=== PATIENT | male | born 1980 | race Caucasian/White ===

== ENCOUNTER 2017-07-30 21:12 | Emergency (ER) | payer SELFPAY ==
[~2017-07-30] VITALS: Ht 180.3 cm; Wt 70.3 kg
== END 2017-07-30 23:11 | disposition home or self-care (01) ==
LOC: ED 21:12
PROC: 0T9B70Z Drainage of Bladder with Drainage Device, Via Natural or Artificial Opening (ICD-10-PCS; principal; 2017-07-30)
DX: S90.561A Insect bite (nonvenomous), right ankle, initial encounter (principal); F17.200 Nicotine dependence, unspecified, uncomplicated; W57.XXXA Bitten or stung by nonvenomous insect and other nonvenomous arthropods, initial encounter
CPT/HCPCS: 51701; 85025; 99283; Q0163

== ENCOUNTER 2017-09-14 02:49 | Emergency (ER) | payer SELFPAY ==
[~2017-09-14] VITALS: Ht 180.3 cm; Wt 72.6 kg
== END 2017-09-14 03:39 | disposition home or self-care (01) ==
LOC: ED 02:49
DX: S80.12XA Contusion of left lower leg, initial encounter (principal); F17.200 Nicotine dependence, unspecified, uncomplicated; V89.2XXA Person injured in unspecified motor-vehicle accident, traffic, initial encounter; Y93.89 Activity, other specified
CPT/HCPCS: 73590; 99283